=== PATIENT | female | born 1995 | race Caucasian/White ===

== ENCOUNTER 2018-12-05 13:10 | Emergency (ER) | payer SELFPAY ==
--- NOTE | 2018-12-05 14:37 | RAD REPORT ---
EXAM DESCRIPTION: US - Abdomen Exam Limited - 12/05/2018 2:30 pm CLINICAL HISTORY: Abdominal pain. COMPARISON: None. FINDINGS: The patient was not NPO. The gallbladder is somewhat contracted limiting evaluation. The gallbladder wall is not thickened. A gallstone is not seen. The biliary tree is normal caliber. IMPRESSION: Grossly normal gallbladder ultrasound.
--- NOTE | 2018-12-05 14:37 | RAD REPORT ---
EXAM DESCRIPTION: Lui Single View12/05/2018 2:31 pm CLINICAL HISTORY: Cough COMPARISON: none FINDINGS: Lungs are hyperaerated. The lungs appear clear of acute infiltrate. The heart is normal size
[2018-12-05 15:03] LABS: Absolute Lymphocytes (CBC) 2.4 K/uL (0.7-4.9); Absolute Monocytes 0.9 K/uL (0.1-1.3); Absolute Neutrophil 7.3 K/uL (1.8-8.0); Basophils % 0.4 % (0-1.3); Eosinophils % 1.7 % (0-4.4); Lymphocytes % 22.5 % (15.3-44.8); MPV 8.8 fL (7.6-11.3); Monocytes % 8.4 % (3.3-12.3); RBC Red Blood Cell Count 5.05 M/uL (3.86-4.86)
[2018-12-05 15:17] LABS: ALT/SGPT 39 U/L (12-78); AST/SGOT 23 U/L (15-37); Albumin 4.2 g/dL (3.4-5.0); Alkaline Phosphatase 68 U/L (45-117); BUN Blood Urea Nitrogen 10 mg/dL (7-18); Bicarbonate 31 mmol/L (21-32); Bilirubin Direct < 0.1 mg/dL (0-0.2); Bilirubin Total 0.3 mg/dL (0.2-1.0); Glucose Level 74 mg/dL (74-106); Lipase 93 U/L (73-393); Potassium 3.4 mmol/L (3.5-5.1); Protein, Total 7.9 g/dL (6.4-8.2); Sodium Level 140 mmol/L (136-145)
--- NOTE | 2018-12-05 16:12 | ER ---
Nurse's Notes [facility] Name: Marilee Campbell Age: 23 yrs Sex: Female : 1995 Arrival Date: 12/05/2018 Time: 13:13 Bed 17 Private MD: Diagnosis: Dehydration;Nausea and vomiting Presentation: 12/05 13:13 Presenting complaint: Patient states: nausea, cough, lightheaded since this morning. sv Transition of care: patient was not received from another setting of care. Onset of symptoms was December 05, 2018. Care prior to arrival: None. 13:13 Method Of Arrival: Ambulatory sv 13:13 Acuity: CHARY 3 sv 15:00 Risk Assessment: Do you want to hurt yourself or someone else? Patient reports no ph desire to harm self or others. Initial Sepsis Screen: Does the patient meet any 2 criteria? No. Patient's initial sepsis screen is negative. Does the patient have a suspected source of infection? No. Patient's initial sepsis screen is negative. Triage Assessment: 13:15 General: Appears in no apparent distress. comfortable, well developed, Behavior is sv calm, cooperative, appropriate for age. Pain: Complains of pain in abdomen. Neuro: Level of Consciousness is awake, alert, obeys commands, Oriented to person, place, time, situation, Gait is steady. Neuro: Reports lightheaded. Respiratory: Reports cough that is non-productive, Respiratory effort is even, unlabored, Respiratory pattern is regular, symmetrical. GI: Reports nausea. Derm: Skin is pink, warm \T\ dry. Historical: - Allergies: 13:14 No Known Allergies; sv - PMHx: 13:14 None; sv - PSHx: 13:14 None; sv - Immunization history:: Adult Immunizations unknown. - Social history:: Smoking status: Patient/guardian denies using tobacco. - Ebola Screening: : No symptoms or risks identified at this time. Screenin:42 Abuse screen: Denies threats or abuse. Denies injuries from another. Nutritional ph screening: No deficits noted. Tuberculosis screening: No symptoms or risk factors identified. Fall Risk None identified. Assessment: 14:00 General: Appears in no apparent distress. uncomfortable, well groomed, Behavior is ph calm, cooperative, appropriate for age, Denies fever. Pain: Complains of pain in right upper quadrant. Neuro: Level of Consciousness is awake, alert, obeys commands, Oriented to person, place, time, situation. Cardiovascular: Capillary refill < 3 seconds in bilateral fingers Patient's skin is warm and dry. Respiratory: Airway is patent Respiratory effort is even, unlabored. GI: Abdomen is round non-distended, Bowel sounds present X 4 quads. Abd is soft X 4 quads Abdomen is tender to palpation in right upper quadrant Reports upper abdominal pain, nausea, vomiting. : No signs and/or symptoms were reported regarding the genitourinary system. Derm: Skin is intact, Skin is pink, warm \T\ dry. Musculoskeletal: Circulation, motion, and sensation intact. Range of motion: intact in all extremities. 15:00 Reassessment: Patient appears in no apparent distress at this time. Patient and/or ph family updated on plan of care and expected duration. Pain level reassessed. Patient is alert, oriented x 3, equal unlabored respirations, skin warm/dry/pink. 16:30 Reassessment: Patient appears in no apparent distress at this time. Patient and/or ph family updated on plan of care and expected duration. Pain level reassessed. Patient is alert, oriented x 3, equal unlabored respirations, skin warm/dry/pink. D/C pending completion of IV fluids. 17:46 Reassessment: Patient appears in no apparent distress at this time. Patient and/or ph family updated on plan of care and expected duration. Pain level reassessed. Patient is alert, oriented x 3, equal unlabored respirations, skin warm/dry/pink. Pt d/c home. Vital Signs: 13:14 BP 131 / 73; Pulse 95; Resp 18; Temp 97.8; Pulse Ox 100% ; Weight 74.84 kg; Height 5 sv ft. 1 in. (154.94 cm); 15:04 BP 107 / 79 Supine; Pulse 65; Resp 16; Pulse Ox 100% on R/A; dh3 15:06 BP 115 / 83 Sitting; Pulse 70; Resp 18; Pulse Ox 100% on R/A; dh3 15:08 BP 124 / 91 Standing; Pulse 84; Resp 19; Pulse Ox 100% ; dh3 16:00 BP 126 / 78; Pulse 71; Resp 16; Pulse Ox 99% on R/A; ph 17:00 BP 120 / 72; Pulse 74; Resp 16; Temp 97.9; Pulse Ox 100% on R/A; ph 13:14 Body Mass Index 31.18 (74.84 kg, 154.94 cm) sv ED Course: 13:13 Patient arrived in ED. mr 13:13 Triage completed. sv 13:15 Arm band placed on. sv 13:41 Chelsy Cortes RN is Primary Nurse. ph 13:47 Radha Ny F[facility]-C [facility]. kb 13:47 Bill Abbott MD is Attending Physician. kb 14:30 US Abdomen Limited In Process Unspecified. EDMS 14:30 Patient moved to radiology via wheelchair. mh1 14:31 Ultrasound completed. Patient tolerated well. aa4 14:32 Chest Single View XRAY In Process Unspecified. EDMS 14:42 Initial lab(s) drawn, by me, sent to lab. Inserted saline lock: 20 gauge in right dh3 antecubital area, using aseptic technique. Blood collected. 15:00 Patient has correct armband on for positive identification. Placed in gown. Bed in low ph position. Call light in reach. Side rails up X 1. Pulse ox on. NIBP on. Warm blanket given. 17:42 No provider procedures requiring assistance completed. IV discontinued, intact, ph bleeding controlled, No redness/swelling at site. Pressure dressing applied. Administered Medications: 16:15 Drug: NS 0.9% 1000 ml Route: IV; Rate: 1000 ml; Site: right antecubital; ph 17:35 Follow up: Response: No adverse reaction; IV Status: Completed infusion ph Outcome: 16:11 Discharge ordered by . kb 17:47 Discharged to home ambulatory. ph 17:47 Condition: good 17:47 Discharge instructions given to patient, Instructed on discharge instructions, follow up and referral plans. medication usage, Demonstrated understanding of instructions, follow-up care, medications, Prescriptions given X 2. 17:48 Patient left the ED. ph Signatures: Dispatcher [employer] EDMA Radha Ny FNP-C FNP-Ckb Verde, Stephanie, RN RN Lovett, Dileep Rodha 1 Veda Ndiaye aa4 Chelsy Cortes RN RN Benjamin [place] [id number] Corrections: (The following items were deleted from the chart) 13:15 13:14 Pulse 95bpm; Resp 18bpm; Pulse Ox 100%; Temp 97.8F; 74.84 kg; Height 5 ft. 1 in.; sv BMI: 31.1; sv 17:47 16:30 Reassessment: Patient appears in no apparent distress at this time. Patient ph and/or family updated on plan of care and expected duration. Pain level reassessed. Patient is alert, oriented x 3, equal unlabored respirations, skin warm/dry/pink. ph
--- NOTE | 2018-12-05 16:12 | EDPHYS ---
Physician Documentation [facility] Name: Marilee Campbell Age: 23 yrs Sex: Female : 1995 Arrival Date: 12/05/2018 Time: 13:13 Bed 17 Private MD: ED Physician Bill Abbott HPI: 12/05 16:08 This 23 yrs old Female presents to ER via Ambulatory with complaints of kb Vomiting, Cough, Dizziness. 16:08 The patient presents to the emergency department with nausea, vomiting. Onset: The kb symptoms/episode began/occurred this morning. Possible causes: unknown. The symptoms are aggravated by nothing. The symptoms are alleviated by nothing. Associated signs and symptoms: Pertinent positives: abdominal pain, nausea, vomiting. Severity of symptoms: At their worst the symptoms were moderate in the emergency department the symptoms are unchanged. The patient has not experienced similar symptoms in the past. The patient has not recently seen a physician. Pt reports nausea, vomiting, upper abd pain that started this morning. Reports cough for 3 weeks . Historical: - Allergies: 13:14 No Known Allergies; sv - PMHx: 13:14 None; sv - PSHx: 13:14 None; sv - Immunization history:: Adult Immunizations unknown. - Social history:: Smoking status: Patient/guardian denies using tobacco. - Ebola Screening: : No symptoms or risks identified at this time. ROS: 16:08 Constitutional: Negative for fever, chills, and weight loss, ENT: Negative for injury, kb pain, and discharge, Cardiovascular: Negative for chest pain, palpitations, and edema, Back: Negative for injury and pain, : Negative for injury, bleeding, discharge, and swelling, MS/Extremity: Negative for injury and deformity, Skin: Negative for injury, rash, and discoloration. 16:08 Respiratory: Positive for cough. 16:08 Abdomen/GI: Positive for abdominal pain, nausea and vomiting. Exam: 16:10 Constitutional: This is a well developed, well nourished patient who is awake, alert, kb and in no acute distress. Head/Face: Normocephalic, atraumatic. ENT: Nares patent. No nasal discharge, no septal abnormalities noted. Tympanic membranes are normal and external auditory canals are clear. Oropharynx with no redness, swelling, or masses, exudates, or evidence of obstruction, uvula midline. Mucous membranes moist. Neck: Trachea midline, no thyromegaly or masses palpated, and no cervical lymphadenopathy. Supple, full range of motion without nuchal rigidity, or vertebral point tenderness. No Meningismus. Chest/axilla: Normal chest wall appearance and motion. Nontender with no deformity. No lesions are appreciated. Cardiovascular: Regular rate and rhythm with a normal S1 and S2. No gallops, murmurs, or rubs. Normal PMI, no JVD. No pulse deficits. Respiratory: Lungs have equal breath sounds bilaterally, clear to auscultation and percussion. No rales, rhonchi or wheezes noted. No increased work of breathing, no retractions or nasal flaring. Skin: Warm, dry with normal turgor. Normal color with no rashes, no lesions, and no evidence of cellulitis. MS/ Extremity: Pulses equal, no cyanosis. Neurovascular intact. Full, normal range of motion. Neuro: Awake and alert, GCS 15, oriented to person, place, time, and situation. Cranial nerves II-XII grossly intact. Motor strength 5/5 in all extremities. Sensory grossly intact. Cerebellar exam normal. Normal gait. 16:10 Abdomen/GI: Inspection: abdomen appears normal, Bowel sounds: normal, in all quadrants, Palpation: soft, in all quadrants, moderate abdominal tenderness, in the right upper quadrant. Vital Signs: 13:14 BP 131 / 73; Pulse 95; Resp 18; Temp 97.8; Pulse Ox 100% ; Weight 74.84 kg; Height 5 sv ft. 1 in. (154.94 cm); 15:04 BP 107 / 79 Supine; Pulse 65; Resp 16; Pulse Ox 100% on R/A; dh3 15:06 BP 115 / 83 Sitting; Pulse 70; Resp 18; Pulse Ox 100% on R/A; dh3 15:08 BP 124 / 91 Standing; Pulse 84; Resp 19; Pulse Ox 100% ; dh3 16:00 BP 126 / 78; Pulse 71; Resp 16; Pulse Ox 99% on R/A; ph 17:00 BP 120 / 72; Pulse 74; Resp 16; Temp 97.9; Pulse Ox 100% on R/A; ph 13:14 Body Mass Index 31.18 (74.84 kg, 154.94 cm) sv MDM: 13:48 Patient medically screened. kb 16:10 Data reviewed: vital signs, nurses notes. Data interpreted: Pulse oximetry: on room air kb is 100 %. Interpretation: normal. Counseling: I had a detailed discussion with the patient and/or guardian regarding: the historical points, exam findings, and any diagnostic results supporting the discharge/admit diagnosis, lab results, radiology results, the need for outpatient follow up, a family practitioner, to return to the emergency department if symptoms worsen or persist or if there are any questions or concerns that arise at home. 12/05 14:14 Order name: Basic Metabolic Panel; Complete Time: 15:19 kb 12/05 14:14 Order name: CBC with Diff; Complete Time: 15:44 kb 12/05 14:14 Order name: Hepatic Function; Complete Time: 15:19 kb 12/05 14:14 Order name: Lipase; Complete Time: 15:19 kb 12/05 14:14 Order name: Chest Single View XRAY; Complete Time: 14:39 kb 12/05 14:14 Order name: US Abdomen Limited; Complete Time: 14:38 kb 12/05 14:14 Order name: IV Saline Lock; Complete Time: 14:48 kb 12/05 14:14 Order name: Labs collected and sent; Complete Time: 14:48 kb 12/05 14:14 Order name: Orthostatics; Complete Time: 15:11 kb Administered Medications: 16:15 Drug: NS 0.9% 1000 ml Route: IV; Rate: 1000 ml; Site: right antecubital; ph 17:35 Follow up: Response: No adverse reaction; IV Status: Completed infusion ph Disposition: 12/06 07:28 Co-signature as Attending Physician, Bill Abbott MD I agree with the assessment and ashly plan of care. Disposition: 12/05/18 16:11 Discharged to Home. Impression: Dehydration, Nausea and vomiting. - Condition is Stable. - Discharge Instructions: Nausea and Vomiting, Adult, [id number], Dehydration, Adult, [id number]. - Prescriptions for Bentyl 20 mg Oral Tablet - take 1 tablet by ORAL route every 6 hours As needed; 20 tablet. Zofran 4 mg Oral Tablet - take 1 tablet by ORAL route every 6 hours As needed; 20 tablet. - Work release form, Medication Reconciliation Form, Thank You Letter, Antibiotic Education, Prescription Opioid Use form. - Follow up: Emergency Department; When: As needed; Reason: Worsening of condition. Follow up: Private Physician; When: 2 - 3 days; Reason: Recheck today's complaints, Continuance of care, Re-evaluation by your physician. Signatures: Dispatcher [employer] EDRadha Hanna, NADIA-Alfredo ZUNIGA-Sushma Saez RN RN Bill Villanueva MD MD cha Hall, Patricia, RN RN ph Corrections: (The following items were deleted from the chart) 12/05 17:48 16:11 12/05/2018 16:11 Discharged to Home. Impression: Dehydration; Nausea and ph vomiting. Condition is Stable. Forms are Medication Reconciliation Form, Thank You Letter, Antibiotic Education, Prescription Opioid Use. Follow up: Emergency Department; When: As needed; Reason: Worsening of condition. Follow up: Private Physician; When: 2 - 3 days; Reason: Recheck today's complaints, Continuance of care, Re-evaluation by your physician. kb
[2018-12-05] MEDS ORDERED: NA CHLORIDE 0.9% 1,000 ML ONE (16:16)
== END 2018-12-05 17:48 | disposition home or self-care (01) ==
LOC: ER 13:10
DX: R11.2 Nausea with vomiting, unspecified (principal); E86.0 Dehydration; R05 Cough; R10.10 Upper abdominal pain, unspecified
CPT/HCPCS: 36415; 71045; 76705; 80048; 80076; 83690; 85025; 96360; 99284; J7030